=== PATIENT | male | born 1990 | race African-American/Black ===

== ENCOUNTER 2020-05-02 16:24 | Outpatient (CLI) | payer OTHER, SELFPAY ==
[2020-05-02 17:18] LABS: Basophils Percent Auto 0.3 % (0.2-1.2); Eosinophils Absolute Auto 0.1 K/mm3 (0-0.3); Eosinophils Percent Auto 1.5 % (0-4.4); Hematocrit 37.3 % (42.0-52.0); Hemoglobin 13.2 g/dL (14.0-18.0); Immature Granulocyte Absolute 0.02 K/mm3 (0.00-0.031); Immature Granulocyte Percent A 0.3 % (0-0.5); Lymphocytes Absolute Auto 2.39 K/mm3 (0.9-3.2); Lymphocytes Percent Auto 39.2 % (18.3-44.2); Mean Corpuscular HGB Conc 35.4 g/dl (32-36); Mean Corpuscular Hemoglobin 28.6 pg (26-34); Mean Corpuscular Volume 80.9 fl (80-100); Mean Platelet Volume 9.9 fl (7.4-10.4); Monocytes Absolute Auto 0.5 K/mm3 (0.1-0.6); Monocytes Percent Auto 7.9 % (2.6-8.5); Neutrophils Absolute Auto 3.1 K/mm3 (1.3-6.7); Neutrophils Percent Auto 50.8 % (45.5-73.1); Platelet Count Result 258 k/mm3 (150-375); Red Blood Count 4.61 M/mm3 (4.6-6.20); Red Cell Distribution Width 13.4 % (11.5-14.5); White Blood Count 6.1 K/mm3 (4.5-10.0)
[2020-05-02 17:32] LABS: Alanine Aminotransferase 19 U/L (4-50); Albumin Level 4.3 g/dL (3.5-5.1); Alkaline Phosphatase 75 U/L (38-126); Anion Gap 10 mmol/L (8-16); Aspartate Amino Transferase 27 U/L (17-59); Blood Urea Nitrogen 12 mg/dL (9-20); Calcium 9.2 mg/dL (8.4-10.2); Carbon Dioxide 24 mmol/L (22-30); Chloride 106 mmol/L (98-107); Cholesterol 115 mg/dL (0-200); Estimated Glomerular Filt Rate > 60; Glucose 97 mg/dL (75-110); HDL Direct 28 mg/dL; Potassium 3.9 mmol/L (3.4-5.0); Sodium 140 mmol/L (137-145); Triglycerides 87 mg/dL (<150)
[2020-05-02 17:43] LABS: LDL Cholesterol Direct 74 mg/dL
[2020-05-02 18:00] LABS: Thyroid Stimulating Hormone 0.392 uIU/mL (0.465-4.680)
== END 2020-05-02 16:25 | disposition home or self-care (01) ==
LOC: ANHLAB 16:28
PROVIDERS: Visit Provider Internal Medicine
DX: J45.909 Unspecified asthma, uncomplicated (principal); K21.9 Gastro-esophageal reflux disease without esophagitis; K25.9 Gastric ulcer, unspecified as acute or chronic, without hemorrhage or perforation; Z72.51 High risk heterosexual behavior; Z13.9 Encounter for screening, unspecified; R10.13 Epigastric pain
CPT/HCPCS: 36415; 80053; 80061; 84443; 85025

== ENCOUNTER 2020-05-08 17:58 | Outpatient (NON) | payer OTHER, SELFPAY ==
[2020-05-13 08:42] LABS: H pylori Ag Stool Not Detected (Not Detected)
== END 2020-05-08 17:59 ==
PROVIDERS: Visit Provider Internal Medicine
DX: J45.909 Unspecified asthma, uncomplicated (principal); K21.9 Gastro-esophageal reflux disease without esophagitis; K25.9 Gastric ulcer, unspecified as acute or chronic, without hemorrhage or perforation; Z72.51 High risk heterosexual behavior; Z13.9 Encounter for screening, unspecified
CPT/HCPCS: 87338

== ENCOUNTER 2020-05-23 16:08 | Outpatient (CLI) | payer OTHER, SELFPAY ==
[2020-05-23 17:33] LABS: HIV 1/2 Ab P24 Ag Result Negative (Negative)
[2020-05-24 11:09] LABS: Rapid Plasma Reagin Non-Reactive (NonReactive)
[2020-05-29 07:44] LABS: C. pneumoniae Ab (IgG) <1:64 (<1:64); C. psittaci Ab (IgG) <1:64 (<1:64); C. trachomatis Ab (IgG) <1:64 (<1:64)
== END 2020-05-23 16:09 | disposition home or self-care (01) ==
PROVIDERS: Visit Provider Internal Medicine
DX: Z72.51 High risk heterosexual behavior (principal)
CPT/HCPCS: 36415; 86592; 86631; 86695; 86696; 86703; 87491; 87591; G0432

== ENCOUNTER 2020-05-27 12:23 | Outpatient (CLI) | payer OTHER, SELFPAY ==
--- NOTE | ~2020-05-27 | XR_ITS ---
XR hand LT min 3V DATE: 05/27/2020 12:51 INDICATION: Fourth and fifth metacarpal area pain TECHNIQUE: 3 views COMPARISON: 11/27/2013 left hand FINDINGS: No fracture or dislocation, periosteal reaction or bone destruction, radiopaque foreign bod y or other significant abnormality. IMPRESSION: Negative Reviewed, dictated and finalized at location A. [employer] IMPRESSION: Negative
== END 2020-05-27 12:24 | disposition home or self-care (01) ==
LOC: ANHIMG 12:30
PROVIDERS: PCP Internal Medicine; Visit Provider Internal Medicine
DX: M79.642 Pain in left hand (principal)
CPT/HCPCS: 73130

== ENCOUNTER 2021-03-21 16:04 | Outpatient (CLI) | payer OTHER, SELFPAY ==
[2021-03-21 17:08] LABS: Add Urine Microscopic? YES; Appearance Urine Clear (Clear); Bilirubin Urine Negative (Negative); Blood Urine 1+ (Negative); Color Urine Yellow (Yellow); Glucose Urine UA Negative (Negative); Ketones Urine Negative (Negative); Leukocyte Esterase Ur Negative LEU/UL (Negative); Mucus Urine Rare /lpf; Nitrate Urine Negative (Negative); Protein Urine Negative (Negative); Specific Grav Ur 1.018 (1.001-1.035); Squamous Epithelial Cell Urine Rare /hpf (Few); Urobilinogen Urine Negative mg/dL (<2.0); WBC Urine 0-3 /hpf
[2021-03-21 18:19] LABS: HIV 1/2 Ab P24 Ag Result Negative (Negative)
[2021-03-21 18:58] LABS: Hepatitis C Virus Antibody Negative (Negative)
[2021-03-25 09:51] LABS: Herpes Simplex Type 1 DNA PCR Not Detected (Not Detected); Herpes Simplex Type 2 DNA PCR Not Detected (Not Detected)
[2021-03-25 10:30] LABS: Rapid Plasma Reagin Non-Reactive (NonReactive)
== END 2021-03-21 16:05 | disposition home or self-care (01) ==
LOC: ANHLAB 16:06
PROVIDERS: PCP Internal Medicine; Visit Provider Internal Medicine
DX: R20.8 Other disturbances of skin sensation (principal); Z72.51 High risk heterosexual behavior
CPT/HCPCS: 36415; 81001; 86592; 86703; 86803; 87491; 87529; 87591; G0432